=== PATIENT | male | born 1965 | race Two or more races ===

== ENCOUNTER → 2017-04-15 | Outpatient (CLI) | payer BC ==
--- NOTE | 2017-04-15 08:50 | RAD ---
EXAM: Right upper quadrant ultrasound. HISTORY: Right upper quadrant pain and epigastric pain. COMPARISON: None. FINDINGS: Sonographic evaluation of the right upper quadrant was performed. The liver appears normal in parenchymal echotexture. There are no focal lesions. The gallbladder is unremarkable without evidence of stones, wall thickening or pericholecystic fluid. There is no sonographic Edwards sign. The common duct measures 4 mm. The visualized portions of the head of the pancreas reveal no abnormality. The right kidney measures 10.3 cm. Cortical thickness and echogenicity are preserved. There is no hydronephrosis. The visualized portions of the abdominal aorta and inferior vena cava are grossly patent and normal in caliber. IMPRESSION: 1. No cause for acute pain is identified.
== END | disposition home or self-care (01) ==
LOC: US 07:43
PROVIDERS: ATTEND Nurse Practitioner Family
DX: R10.11 Right upper quadrant pain (principal)
CPT/HCPCS: 76705

== ENCOUNTER → 2020-08-29 | Outpatient (CLI) | payer BC ==
--- NOTE | 2020-08-29 14:45 | RAD ---
XR CHEST 2V INDICATION: SHORTNESS OF BREATH . COMPARISON STUDY: None. FINDINGS: Lungs: Normal lung volume. No pulmonary mass or consolidation. The tracheobronchial tree and hilar st ructures are normal. Pleura: No pleural effusion or pneumothorax. Heart and Mediastinum: The cardiomediastinal silhouette is normal. The great vessels of the thorax ar e normal. Bones and Soft Tissues: The bones and soft tissues are within normal limits. IMPRESSION: No acute cardiopulmonary process. Electronically signed by: Joe Cedeno MD (08/29/2020 2:42 PM) [id number]
== END ==
LOC: RAD 12:16
PROVIDERS: ATTEND Internal Medicine
DX: R05 Cough (principal)
CPT/HCPCS: 71046

== ENCOUNTER → 2020-10-31 | Outpatient (CLI) | payer BC ==
[~2020-10-31] MED LIST: ATOR40TA59 PO; LISI1TAB37 PO; PANT40TA6 PO
== END ==
LOC: LAB 10:30
PROVIDERS: ATTEND Nurse Anesthetist, Certified Registered
DX: Z01.812 Encounter for preprocedural laboratory examination (principal); Z20.822 Contact with and (suspected) exposure to COVID-19
CPT/HCPCS: U0003; U0005

== ENCOUNTER → 2020-11-04 | Day surgery (SDC) | payer BC ==
[~2020-11-04] MED LIST changes: +IPRATRPIUM/ALBUTEROL 0.5/2.5MG 3 ML NEBU. NEB PRN; +IV RINGERS SOLUTION,LACTATED 1,000 ML IV SCH; +LIDOCAINE 2% PF 5 ML VIAL. ONE; +MIDAZOLAM HCL PF 2 MG/2 ML VIAL. IV ONE; +ONDANSETRON PF 4 MG/2 ML VIAL. IV PRN; +PROPOFOL 10,000 MCG/ML (20ML) VIAL IV ONE
[2020-11-04 09:45] VITALS: BP 131/73
--- NOTE | 2020-11-07 15:11 | PATHOLOGY ---
[facility] Accession Number: [id number] . 01 Material submitted: . colon - TRANSVERSE COLON POLYP. Modifiers: transverse . 01 Clinical history: . COLONOSCOPY SCREENING PREVIOUS VIST FOR COUGH . 02 Diagnosis: Colon biopsies, transverse colon polyp: - Tubular adenoma. ([facility] 11/07/2020) [facility] 11/07/2020 1025 Local . 02 Comment: There is no high-grade dysplasia or evidence of malignancy. ([facility] 11/07/2020) . 02 Electronically signed: . Jordon Tinoco MD, Pathologist NPI- [id number] . 01 Gross description: . The specimen is received in formalin, labeled "Lewis Sanchez, transverse colon polyp". Received are two segments of pale morales tissue measuring 0.3 cm each in maximum dimensions. The specimen is submitted entirely in cassette A1. ([facility]; 11/06/2020) [facility] 11/06/2020 1258 Local . 02 Pathologist provided ICD-10: D12.3 . 02 CPT . 064899 Specimen Comment: A courtesy copy of this report has been sent to [phone] Specimen Comment: Report sent to Performed at: 01 [facility] [address], [place], [place] [id number] MD Scott Weller MD Phone: [phone] Performed at: 02 [facility] [address] [place], [place] [id number] MD Jordon Tinoco MD Phone: [phone]
== END | disposition home or self-care (01) ==
LOC: SURG 08:32
PROVIDERS: ATTEND Emergency Medicine
DX: Z12.11 Encounter for screening for malignant neoplasm of colon (principal); D12.3 Benign neoplasm of transverse colon; K57.30 Diverticulosis of large intestine without perforation or abscess without bleeding; Z79.899 Other long term (current) drug therapy; Z72.89 Other problems related to lifestyle
CPT/HCPCS: 45380; 88305; J2001; J2704